=== PATIENT | female | born 1995 | race Caucasian/White ===

== ENCOUNTER 2023-04-17 11:46 | Emergency (ER) | payer OTHER ==
[~2023-04-17] VITALS: Ht 167.6 cm; Wt 127.3 kg
[~2023-04-17 11:46] MED LIST: ALBU17AE2; MIRENA
[2023-04-17 11:50] VITALS: TEMP 99
[2023-04-17] MEDS ORDERED: PERTUSS(ACELL),DIPH,TET VAC/PF 0.5 ML SYRINGE IM. ONE (12:45)
[2023-04-17] MEDS ORDERED: BACITRACIN 0.9 GM PACKET OINTMENT TP ONE (12:45)
[2023-04-17] MEDS ORDERED: AMOX TR/POT CLAV 875 MG/125 MG TABLET PO ONE (12:45)
[2023-04-17] MEDS ORDERED: AMOX1TAB16 PO (12:58)
[2023-04-17 13:20] VITALS: BP 135/81; PULSE 77; RESP 16
== END 2023-04-17 13:32 | disposition home or self-care (01) ==
LOC: EMS 11:46
DX: S61.252A Open bite of right middle finger without damage to nail, initial encounter (principal); J45.909 Unspecified asthma, uncomplicated; F17.210 Nicotine dependence, cigarettes, uncomplicated; W54.0XXA Bitten by dog, initial encounter; Y93.89 Activity, other specified; Y92.89 Other specified places as the place of occurrence of the external cause; Y99.8 Other external cause status
CPT/HCPCS: 90471; 90715; 99283

== ENCOUNTER 2023-08-06 09:02 | Emergency (ER) | payer OTHER ==
[~2023-08-06] VITALS: Ht 167.6 cm; Wt 127.3 kg
[~2023-08-06 09:02] MED LIST changes: -ALBU17AE2; +AMOX1TAB16 PO; -MIRENA
[2023-08-06 09:14] VITALS: TEMP 98.4
[2023-08-06 09:42] LABS: BASOPHILS % (AUTO) 0.4 % (0.0-2.0); EOSINOPHILS % (AUTO) 1.2 % (1.0-6.0); HEMATOCRIT 44.6 % (36-46); HEMOGLOBIN 15.2 g/dL (12.0-16.0); LYMPHOCYTES # (AUTO) 1.4 K/uL (1.0-4.8); LYMPHOCYTES % (AUTO) 14.5 % (22.0-44.0); MEAN CORPUSCULAR HEMOGLOBIN 30.9 pg (26.0-34.0); MEAN CORPUSCULAR VOLUME 91 fL (80-100); MONOCYTES # (AUTO) 0.8 K/uL (0.1-1.0); MONOCYTES % (AUTO) 7.9 % (2.0-9.0); NEUTROPHILS # (AUTO) 7.6 K/uL (1.8-7.7); PLATELET COUNT (AUTO) 281 K/uL (150-450); RED CELL DISTRIBUTION WIDTH 13.3 % (11.5-14.5)
[2023-08-06 09:50] LABS: ANION GAP 10 mmol/L (8-16); CARBON DIOXIDE 28 mmol/L (22-29); CHLORIDE 101 mmol/L (98-107); CREATININE 0.76 mg/dL (0.60-1.30); GLOMERULAR FILTR. RATE CALC > 60 mL/min (>60); GLUCOSE,RANDOM 100 mg/dL (70-110); POTASSIUM 3.6 mmol/L (3.5-5.1); SODIUM SERUM 139 mmol/L (136-145); UREA NITROGEN, BLOOD 6 mg/dL (7-18)
[2023-08-06 09:53] LABS: COVID AG,FIA SOURCE NASAL SWAB
[2023-08-06 09:58] LABS: TROPONIN I-HIGH SENSITIVITY 4 ng/L (<51)
[2023-08-06 10:00] LABS: B-TYPE NATRIURETIC PEPTIDE 6 pg/mL (0-100)
[2023-08-06] MEDS: ACETAMINOPHEN 500 MG TABLET PO ONE (10:04)
[2023-08-06] MEDS: ALBUTEROL SULFATE HFA 90 MCG/PUFF 8 GM INHALER IH ONE (10:08)
[2023-08-06 10:12] VITALS: PULSE 90; RESP 18; O2SAT 96
[2023-08-06 10:15] LABS: ALANINE AMINOTRANSFERASE 42 U/L (12-78); ALBUMIN 4.2 g/dL (3.4-5.0); ALKALINE PHOSPHATASE 61 U/L (46-116); ASPARTATE AMINOTRANSFERASE 29 U/L (15-37); BILIRUBIN,TOTAL 0.4 mg/dL (0.1-1.0); CREATINE KINASE, TOTAL ONLY 222 U/L (26-192)
[2023-08-06 10:33] LABS: INFLUENZA TYPE A NEGATIVE FOR TYPE A (NEGATIVE); INFLUENZA TYPE B NEGATIVE FOR TYPE B (NEGATIVE)
[2023-08-06 10:40] LABS: SARS-COV2 (COVID) ANTIGEN,FIA Positive (Negative)
[2023-08-06 11:00] VITALS: BP 114/73; PULSE 83; RESP 16
[2023-08-06] MEDS ORDERED: IBUP-1492 PO (11:02)
[2023-08-06] MEDS ORDERED: ACET-3385 PO (11:02)
== END 2023-08-06 11:12 | disposition home or self-care (01) ==
LOC: EMS 09:02
DX: U07.1 COVID-19 (principal); J45.909 Unspecified asthma, uncomplicated; F17.210 Nicotine dependence, cigarettes, uncomplicated
CPT/HCPCS: 99285; 71045; 87426; 80053; 82550; 83880; 84484; 85025; 85379; 87804; 36415; 94640; 93005; J3535

== ENCOUNTER 2024-04-05 07:45 | Emergency (ER) | payer OTHER ==
[~2024-04-05] VITALS: Ht 167.6 cm; Wt 142.0 kg
[~2024-04-05 07:45] MED LIST changes: +ACET-3385 PO; +AMOX-457 PO; -AMOX1TAB16 PO; +IBUP-1492 PO
[2024-04-05 07:51] VITALS: TEMP 98
[2024-04-05 08:15] LABS: COVID AG,FIA SOURCE NASAL SWAB
[2024-04-05 08:34] LABS: RAPID GROUP A STREP NEGATIVE (NEGATIVE)
[2024-04-05] MEDS: IBUPROFEN 600 MG TABLET PO ONE (08:37)
[2024-04-05] MEDS: ACETAMINOPHEN 325 MG TABLET PO ONE (08:37)
[2024-04-05 08:39] LABS: SARS-COV2 (COVID) ANTIGEN,FIA Negative (Negative)
[2024-04-05 08:40] LABS: INFLUENZA TYPE A NEGATIVE FOR TYPE A (NEGATIVE); INFLUENZA TYPE B NEGATIVE FOR TYPE B (NEGATIVE)
[2024-04-05 08:55] VITALS: BP 119/76; PULSE 82; RESP 18; O2SAT 98
== END 2024-04-05 09:05 | disposition home or self-care (01) ==
LOC: EMS 07:45
DX: J06.9 Acute upper respiratory infection, unspecified (principal); B97.89 Other viral agents as the cause of diseases classified elsewhere; J45.909 Unspecified asthma, uncomplicated; M41.9 Scoliosis, unspecified; F17.210 Nicotine dependence, cigarettes, uncomplicated; Z20.822 Contact with and (suspected) exposure to COVID-19
CPT/HCPCS: 87430; 87804; 99283